=== PATIENT | male | born 1990 | race Caucasian/White ===

== ENCOUNTER 2018-03-20 18:11 | Emergency (ER) | payer SELFPAY ==
[~2018-03-20] VITALS: Ht 172.7 cm; Wt 92.8 kg
[2018-03-20 20:10] LABS: BASOPHIL % 0.3 % (0-2); PLATELET COUNT 206 x10^3mcL (130-400)
[2018-03-20 20:17] LABS: CALCIUM 9.5 mg/dL (8.5-10.1); CARBON DIOXIDE 29.6 mmol/L (21-32); CHLORIDE SERUM 98 mmol/L (98-107); CREATININE SERUM 1.1 mg/dL (0.7-1.3); GFR1 > 60 mL/min; GLUCOSE SERUM 109 mg/dL (74-106); POTASSIUM SERUM 3.6 mmol/L (3.5-5.1); SODIUM SERUM 138 mmol/L (136-145)
[2018-03-20 20:22] LABS: ALBUMIN 4.1 g/dL (3.4-5.0); ALKALINE PHOSPHATASE 94 U/L (46-116); ALT/SGPT 96 U/L (16-63); AST/SGOT 41 U/L (15-37); BILIRUBIN TOTAL 0.8 mg/dL (0.20-1.00)
[2018-03-20 20:27] LABS: TOTAL PROTEIN, SERUM 9.2 g/dL (6.4-8.2)
[2018-03-20 21:53] VITALS: BP 125/74
== END 2018-03-20 21:53 | disposition home or self-care (01) ==
LOC: EDBD 18:11 → ED 18:11
PROVIDERS: Emergency Medicine
DX: G44.209 Tension-type headache, unspecified, not intractable (principal)
CPT/HCPCS: J1885; J7030